=== PATIENT | male | born 2000 | race Caucasian/White ===

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

== ENCOUNTER 2020-05-06 09:49 | Outpatient (RCR) | payer BC ==
[~2020-05-06 09:49] MED LIST: IMITREX100 MG PO; PROAIR HFA0.09 MG/AC IH
== END 2020-05-20 | disposition still patient (30) ==
LOC: WSST
DX: R13.13 Dysphagia, pharyngeal phase (principal); R05 Cough; M41.9 Scoliosis, unspecified

== ENCOUNTER → 2020-05-08 | Outpatient (CLI) | payer BC | LOC: COL.RAD 15:26 | DX: M41.9 Scoliosis, unspecified (principal); R13.10 Dysphagia, unspecified; R05 Cough ==

== ENCOUNTER → 2021-02-12 | Outpatient (CLI) | payer MEDICARE | LOC: COL.RAD 01-01 14:00 | DX: Z01.818 Encounter for other preprocedural examination (principal); M41.85 Other forms of scoliosis, thoracolumbar region; R06.02 Shortness of breath; Z98.890 Other specified postprocedural states ==